=== PATIENT | female | born 1990 | race Caucasian/White ===

== ENCOUNTER 2020-09-30 11:08 | Inpatient (IN) ==
[2020-09-30] MEDS ORDERED: cefOXitin 2,000 MG in Water for inj. (sterile) 20 ML IVP ONE (11:29)
[2020-09-30] MEDS ORDERED: *HR* Propofol 200 MG/20 ML VIAL IVP ONE (12:05)
[2020-09-30] MEDS ORDERED: *HR* Midazolam HCl 2 MG/2 ML VIAL ONE (12:05)
[2020-09-30] MEDS ORDERED: *HR* Succinylcholine 200 MG/10 ML VIAL IVP ONE (12:05)
[2020-09-30] MEDS ORDERED: *HR* Rocuronium Bromide 50 MG/5 ML VIAL ONE (12:05)
[2020-09-30] MEDS ORDERED: Lidocaine -MPF 2% 2 ML VIAL ONE (12:05)
[2020-09-30] MEDS ORDERED: *HR* FentaNYL (PF) 100 MCG/2 ML VIAL ONE (12:05)
[2020-09-30] MEDS ORDERED: Lidocaine HCL 4 ML Topical Solution (Laryng-O-Jet Kit Sterile Pak) TP ONE (12:05)
[2020-09-30] MEDS: Ringers Solution, Lactated 1,000 ML IVC SCH ×3 (12:06→21:56)
[2020-09-30] MEDS ORDERED: *HR* HYDROmorphone PF 0.5 MG/0.5 ML SYRINGE IVP PRN (12:16)
[2020-09-30] MEDS ORDERED: *HR* OxyCODONE Immed Rel 5 MG TABLET PO PRN (12:16)
[2020-09-30] MEDS ORDERED: Promethazine 6.25 MG in Water for inj. (sterile) 20 ML IVPB PRN (12:16)
[2020-09-30] MEDS ORDERED: Ondansetron 4 MG/2 ML VIAL IVP PRN ×2 (12:16→16:25)
[2020-09-30] MEDS ORDERED: Acetaminophen IV 1,000 MG/100 ML BAG IVPB ONE ×2 (13:15→13:27)
[2020-09-30] MEDS ORDERED: Ondansetron 4 MG/2 ML VIAL ONE (13:24)
[2020-09-30] MEDS ORDERED: Dexamethasone 4 MG/ML VIAL ONE (13:24)
[2020-09-30] MEDS ORDERED: *HR* HYDROMORPHONE 2 MG/ML VIAL ONE (14:32)
[2020-09-30] MEDS ORDERED: Acetaminophen/Butalbital/CaffeineTABLET PO PRN (16:25)
[2020-09-30] MEDS ORDERED: Sennosides 8.6 MG TABLET PO PRN (16:25)
[2020-09-30] MEDS ORDERED: Naloxone 0.4 MG/ML INJ IVP PRN (16:25)
[2020-09-30] MEDS ORDERED: Ringers Solution, Lactated 1,000 ML ONE (16:29)
[2020-09-30] MEDS: *HR* HYDROcodone/Acet 5/325 mg TABLET PO PRN (19:16)
[2020-09-30] MEDS: Gabapentin 300 MG CAPSULE PO SCH (21:55)
[2020-09-30] MEDS: Acetaminophen IV 1,000 MG/100 ML BAG IVPB SCH (23:01)
[2020-10-01] MEDS: *HR* HYDROcodone/Acet 5/325 mg TABLET PO PRN ×2 (01:23→06:07)
[2020-10-01 04:44] LABS: Basophils % 0.1 %; Immature Granulocytes % 0.4 % (0-4); Lymphocytes % 6.3 %
[2020-10-01 04:45] LABS: Hematocrit 30.4 % (35.3-44.9); Lymphocytes # 1.6 K/mcL (0.6-4.6); Mean Corpuscular HGB Conc 32.9 g/dL (31.6-35.5); Mean Corpuscular Hemoglobin 28.6 pg (28.0-33.3); Mean Corpuscular Volume 86.9 fL (83.0-100.0); Mean Platelet Volume 10.8 fL (9.4-12.4); Monocytes # 0.8 K/mcL (0.0-1.3); Monocytes % 2.9 %; Neutrophils # 23.5 K/mcL (1.6-8.9); Platelet Count 274 K/mcL (140-400); Red Cell Distribution Width 12.2 % (11.5-14.5); Segmented Neutrophils % 90.3 %
[2020-10-01] MEDS: Ringers Solution, Lactated 1,000 ML IVC SCH (06:08)
[2020-10-01] MEDS: Acetaminophen IV 1,000 MG/100 ML BAG IVPB SCH ×4 (06:08→22:55)
[2020-10-01] MEDS: Simethicone 80 MG TAB.CHEW PO PRN ×2 (06:42→17:23)
[2020-10-01] MEDS ORDERED: Nicotine 21 MG PATCH.TD24 TD SCH (09:00)
[2020-10-01] MEDS: Gabapentin 300 MG CAPSULE PO SCH ×2 (09:03→20:53)
[2020-10-01] MEDS ORDERED: cefOXitin 2,000 MG in Water for inj. (sterile) 20 ML IVP ONE (09:39)
[2020-10-02] MEDS: Acetaminophen IV 1,000 MG/100 ML BAG IVPB SCH (04:56)
[2020-10-02 07:58] VITALS: BP 119/71
[2020-10-02] MEDS: Gabapentin 300 MG CAPSULE PO SCH (08:55)
[2020-10-02] MEDS: Simethicone 80 MG TAB.CHEW PO PRN (08:55)
== END 2020-10-02 09:40 | disposition home or self-care (01) | DRG 513 ==
LOC: SAMDAY 11:08 → 1NENUOBS 16:08
PROVIDERS: ADMIT Student in an Organized Health Care Education/Training Program; ATTEND Student in an Organized Health Care Education/Training Program